=== PATIENT | female | born 1990 | race Caucasian/White ===

== ENCOUNTER 2019-02-05 07:36 | Outpatient (CLI) | payer MEDICAID ==
[~2019-02-05] VITALS: Ht 170.2 cm; Wt 76.7 kg
--- NOTE | 2019-02-05 07:45 | NUR ---
DHAVAL NOLAND presented to unit via wheelchair, accompanied by Significant Other, with c/o DECREASED MOVEMENT. DHAVAL NOLAND weighed, gowned, voided, and to bed. EFHM and TOCO applied, VS taken. DHAVAL NOLAND oriented to bed controls, call light, TV, heat, and A/C controls.
[2019-02-05 07:58] VITALS: BP 128/86
[2019-02-05 08:41] LABS: BILIRUBIN,URINE NEGATIVE (NEGATIVE); CLARITY,URINE CLEAR; COLOR,URINE YELLOW; GLUCOSE, URINE (UA) NEGATIVE (NEGATIVE); KETONES,URINE NEGATIVE (NEGATIVE); LEUKOCYTE ESTERASE ,URINE 2+ (NEGATIVE); NITRITE,URINE NEGATIVE (NEGATIVE); PH,URINE 6.5 (5-9); PROTEIN,URINE 2+ (NEGATIVE); UROBILINOGEN,URINE 8 MG/DL (NORMAL)
[2019-02-05 08:54] LABS: AMPHETAMINE SCREEN, URINE NEGATIVE (NEGATIVE); BARBITURATE SCREEN URINE NEGATIVE (NEGATIVE); BENZODIAZEPINES SCREEN URINE NEGATIVE (NEGATIVE); CANNABINOID SCREEN, URINE NEGATIVE (NEGATIVE); COCAINE SCREEN URINE NEGATIVE (NEGATIVE); METHADONE STAT NEGATIVE (NEGATIVE); METHAMPHETAMINE SCREEN URINE S POSITIVE (NEGATIVE); OPIATE SCREEN URINE NEGATIVE (NEGATIVE); OXYCODONE STAT NEGATIVE (NEGATIVE); PROPOXYPHENE STAT NEGATIVE (NEGATIVE); TRICYCLIC ANTIDEPRESSANTS SCRE NEGATIVE (NEGATIVE)
[2019-02-05 08:59] LABS: BACTERIA,URINE MODERATE /HPF
[2019-02-05] MEDS ORDERED: PREN1TAB79 PO (09:07)
[2019-02-05 09:20] VITALS: BP 120/81
--- NOTE | 2019-02-05 09:35 | NUR ---
ULTRASOUND HERE TO DO BPP. MONITORS REMOVED.
--- NOTE | 2019-02-05 10:13 | NUR ---
BPP COMPLETED. EFM REAPPLIED. PT WANTING TO REST ON LEFT SIDE. DIFFICULTY IN TRACING BOTH FETUSES IN THAT POSITION. ATTEMPTING TO MAKE MORE COMFORTABLE WITH PILLOWS AND TOWEL ROLLS.
--- NOTE | 2019-02-05 11:11 | NUR ---
DR. MORGAN NOTIFIED OF PT'S BPP RESULTS VERBALLY GIVEN BY TECH. ORDER TO DISMISS AND F/U WITH DR. CORONA SCHEDULED FOR TOMORROW IN [place].
--- NOTE | 2019-02-05 11:16 | NUR ---
EFM OFF. UP TO GET DRESSED.
[2019-02-05 11:25] VITALS: BP 120/81
--- NOTE | 2019-02-05 11:25 | NUR ---
DISCHARGE INSTRUCTIONS REVIEWED WITH COPY TO PT. STATES UNDERSTANDING OF ALL INSTRUCTIONS AND NEED TO F/U SCHEDULED AND NEEDED. DISMISSED AMB FROM [facility] IN STABLE CONDITION ACC BY S.O.
--- NOTE | 2019-02-05 11:35 | Diagnostic Imaging Report ---
EXAMINATION: biophysical profile. INDICATION: Decreased movement. COMPARISON: There are no prior studies available for comparison. FINDINGS: There are twin living fetuses. Twin A is in vertex presentation on the left. heart motion was noted and a rate of 135 BPM was recorded. The biophysical profile score for Twin A is 6 out of 8 as breathing could not be identified. There were no obvious abnormalities identified. The amniotic fluid index is 6.4 (normal SHANIKA 8-22 cm). The placenta seems to be anterior. Twin B was also in cephalic presentation on the right. heart motion was noted and a rate of 140 BPM was recorded. The biophysical profile score is also 6 out of 8 as breathing could not be visualized. The amniotic fluid index is 6.3 cm. The placenta was difficult to visualize but appears to be posterior. growth parameters were not obtained for this study. IMPRESSION: 1. There are twin living fetuses, both in cephalic presentation. 2. The biophysical profile score for each twin is 6 out of 8 as breathing could not be identified. 3. There is oligohydramnios of each gestational sac. 4. These results were conveyed to Dr. Robb by our sonologist. Dictated by: Dictated on workstation # [id number]
--- NOTE | 2019-02-06 12:36 | Physician Query-Final Dx ---
HAYDE WARD 02/06/19 1236: Clinic Account Progress/Dx Physician Query: Please give diagnosis Please include # weeks gestation Date of Service Feb 05, 2019 at 07:36 ANGELIC MORGAN DO 02/07/19 1126: Clinic Account Progress/Dx DIAGNOSIS: Diagnosis 35 week twin gestation decreased movement methamphetamine use HAYDE WARD Feb 06, 2019 12:36 ANGELIC MORGAN DO Feb 07, 2019 11:26
== END 2019-02-05 11:25 | disposition home or self-care (01) ==
LOC: WSo 07:36 → LDRP 07:41 → WSo 11:25
PROVIDERS: ATTEND Family Medicine
DX: O36.8130 Decreased fetal movements, third trimester, not applicable or unspecified (principal); O30.003 Twin pregnancy, unspecified number of placenta and unspecified number of amniotic sacs, third trimester; O99.323 Drug use complicating pregnancy, third trimester; F15.90 Other stimulant use, unspecified, uncomplicated; Z3A.35 35 weeks gestation of pregnancy
CPT/HCPCS: 76810; 76819; 80306; 81000; 99213

== ENCOUNTER 2019-02-20 13:50 | Inpatient (IN) | payer MEDICAID ==
[~2019-02-20] VITALS: Ht 170.2 cm; Wt 77.4 kg
[2019-02-20] VITALS (11 sets, daily range): BP systolic 108–131; BP diastolic 70–95
[~2019-02-20 13:50] MED LIST: PREN1TAB79 PO
--- NOTE | 2019-02-20 13:57 | NUR ---
DHAVAL NOLAND presented to unit via w/c from ED, accompanied by s/o, with c/o contractions since Monday. Pt. weighed, gowned, voided, and to bed. EFHM and TOCO applied, VS taken. Pt. oriented to bed controls, call light, TV, heat, and A/C controls.
--- NOTE | 2019-02-20 14:09 | NUR ---
EFM and TOCO applied. pt reports current with twins. reports contractions since Monday, on bedrest since.
--- NOTE | 2019-02-20 14:14 | NUR ---
Twin A monitor applied to Lt.lower abd. Twin B monitor applied to Rt.lower abd. reports seeing in [place], [place] for care prior to admission on February 05. states care was transferred to [place] and unsure of 's name. "went to see , and appointments were cancelled." Addendum: 02/20/19 at 1743 by MOISE VELASQUEZ RN Pt reports hx of emergency c/s with first child r/t elevated BP and "drop" in FHR. x3. was planning a with current . reports on bedrest. pt poor historian
--- NOTE | 2019-02-20 14:28 | NUR ---
reports leaking fluid "constant since the other day,". nitrazine negative. no active leaking noted.
--- NOTE | 2019-02-20 14:29 | NUR ---
SVE 5-6cm, soft, stretchy. 70%, posterior. unable to determine presenting part. bag of fluid noted with exam. verbal update given to Dr. Hawkins r/t KENNYE.
--- NOTE | 2019-02-20 14:37 | NUR ---
here to see pt.
[2019-02-20 14:40] LABS: BILIRUBIN,URINE NEGATIVE (NEGATIVE); CLARITY,URINE CLEAR; COLOR,URINE YELLOW; GLUCOSE, URINE (UA) NEGATIVE (NEGATIVE); KETONES,URINE NEGATIVE (NEGATIVE); LEUKOCYTE ESTERASE ,URINE 1+ (NEGATIVE); NITRITE,URINE NEGATIVE (NEGATIVE); PH,URINE 6.5 (5-9); PROTEIN,URINE 3+ (NEGATIVE)
--- NOTE | 2019-02-20 14:45 | NUR ---
bedside sono by Dr. Hawkins to check presentation.
[2019-02-20 14:47] LABS: BACTERIA,URINE FEW /HPF
[2019-02-20 14:53] LABS: AMPHETAMINE SCREEN, URINE NEGATIVE (NEGATIVE); BARBITURATE SCREEN URINE NEGATIVE (NEGATIVE); BENZODIAZEPINES SCREEN URINE NEGATIVE (NEGATIVE); CANNABINOID SCREEN, URINE NEGATIVE (NEGATIVE); COCAINE SCREEN URINE NEGATIVE (NEGATIVE); METHADONE STAT NEGATIVE (NEGATIVE); METHAMPHETAMINE SCREEN URINE S POSITIVE (NEGATIVE); OPIATE SCREEN URINE NEGATIVE (NEGATIVE); OXYCODONE STAT NEGATIVE (NEGATIVE); PROPOXYPHENE STAT NEGATIVE (NEGATIVE); TRICYCLIC ANTIDEPRESSANTS SCRE NEGATIVE (NEGATIVE)
--- NOTE | 2019-02-20 15:02 | NUR ---
c/s consent signed and placed on chart
[2019-02-20] MEDS ORDERED: D5 LR IV SOLUTION 1,000 ML IV SCH ×2 (15:03→16:06)
--- NOTE | 2019-02-20 15:08 | NUR ---
Cierra Tam here.
--- NOTE | 2019-02-20 15:11 | History & Physical ---
History and Physical Date Seen by Provider: Feb 20, 2019 Time Seen by Provider: 15:08 This patient is a 28-year-old A1 white female with a history of a single and VBACs 3. She had her care in [place] with a Dr. Lopes but has transferred her care to this hospital as she prefers deliver here. She presents with complaint of contractions and pressure. Her cervix is 5 cm dilated. She is having irregular contractions but is obviously in pain with contractions. She denies leading but does feel like she's leaking fluid and nitrazine was negative. Patient indicates that Dr. Lopes was planning a repeat tomorrow for her. She is requesting but after lengthy discussion regarding risks benefits and current standard of care recommendations she agrees to proceed with delivery in this case. Allergies are none Medications are none Social history patient smokes she denies drug and alcohol use. Please note a UDS was positive for methamphetamine History is noncontributory H ENT exam is normal except for exceedingly poor dentition Neck is supple no lymphadenopathy no thyromegaly Abdomen is gravid soft nontender nondistended Extremities show no clubbing or cyanosis. There is no Homans sign. Pelvic exam per the nurse shows a cervix 5+ and Ms. dilated very stretchy with a bulging bag and a barely palpable presenting vertex. Bedside ultrasound does confirm vertex 2 on the twins monitor shows occasional contractions with frequent uterine irritability. heart rate pattern is normal. Assessment and plan term at 37-6/7 weeks' gestation with twins and a previous . Patient is being admitted now for repeat delivery. Surgical risk complications recovery and follow-up have been fully discussed. Patient agrees with the plan and accepts those risks and is ready to proceed 30 7676 weeks gestation and labor with previous and twins Allergies and Home Medications Allergies Coded Allergies: No Known Drug Allergies (Unverified , 02/05/19) Home Medications Vit W-Ca,Fe,FA(<1 mg) 1 Each Tablet, 1 EACH PO DAILY, (Reported) Patient Home Medication List Home Medication List Reviewed: Yes LIZZ SOTOMAYOR MD Feb 20, 2019 15:11
[2019-02-20] MEDS ORDERED: CITRIC ACID/SOB CIT (BICITRA) 30 ML UDC PO ONE (15:15)
[2019-02-20] MEDS ORDERED: metroNIDAZOLE 500MG/100ML IVPB 100 ML IV ONE ×2 (15:15)
[2019-02-20] MEDS ORDERED: FAMOTIDINE 20MG/2ML IV (PEPCID) IV ONE (15:15)
[2019-02-20] MEDS ORDERED: ceFAZolin INJECTION 2,000 MG in WATER (STERILE) FOR INJECTION 10 ML IV ONE (15:15)
[2019-02-20] MEDS ORDERED: ceFAZolin 2 GM IV Premixed 50 ML IV ONE (15:15)
[2019-02-20] MEDS ORDERED: METOCLOPRAMIDE INJ 10 MG/2 ML (REGLAN) IV ONE (15:15)
[2019-02-20] MEDS ORDERED: fentaNYL INJECTION 100 MCG/2 ML AMP ONE (15:18)
[2019-02-20 15:19] LABS: BASOPHILS % (AUTO) 1 % (0-10); EOSINOPHILS # (AUTO) 0.1 10^3/uL (0.0-0.3); EOSINOPHILS % (AUTO) 1 % (0-10); HEMATOCRIT 27 % (35-52); HEMOGLOBIN 8.3 G/DL (11.5-16.0); LYMPHOCYTES # (AUTO) 1.5 X 10^3 (1.0-4.0); LYMPHOCYTES % (AUTO) 24 % (12-44); MEAN CORPUSCULAR HEMOGLOBIN 22 PG (25-34); MEAN CORPUSCULAR HGB CONC 30 G/DL (32-36); MEAN CORPUSCULAR VOLUME 73 FL (80-99); MEAN PLATELET VOLUME 10.9 FL (7.4-10.4); MONOCYTES # (AUTO) 0.4 X 10^3 (0.0-1.0); MONOCYTES % (AUTO) 6 % (0-12); NEUTROPHILS # (AUTO) 4.4 X 10^3 (1.8-7.8); NEUTROPHILS % (AUTO) 68 % (42-75); PLATELET COUNT 141 10^3/uL (130-400); RED CELL DISTRIBUTION WIDTH 15.1 % (10.0-14.5); WHITE BLOOD COUNT 6.4 10^3/uL (4.3-11.0)
[2019-02-20] MEDS: LACTATED RINGERS 1,000 ML IV PRN ×2 (15:20→15:53)
[2019-02-20] MEDS ORDERED: OXYTOCIN/NORMAL SALINE 1,000 ML IV ONE (15:20)
[2019-02-20] MEDS ORDERED: BUPIVACAINE 0.5% 30 ML (SENSORCAINE) VIAL ONE (15:28)
--- NOTE | 2019-02-20 15:34 | NUR ---
monitors dc'd. pt transferred to OB c/s room via bed with OR staff @ side.
[2019-02-20] MEDS ORDERED: KETOROLAC 30 MG/ML VIAL ONE (15:42)
[2019-02-20] MEDS ORDERED: OXYTOCIN/NORMAL SALINE 500 ML IV SCH (16:06)
[2019-02-20] MEDS ORDERED: MEASLES,MUMPS,RUBELLA 1 EA INJ SC ONE (16:15)
[2019-02-20] MEDS ORDERED: ONDANSETRON 4 MG/2 ML (SDV) Z0FRAN IVP PRN ×2 (16:15→16:45)
[2019-02-20] MEDS ORDERED: TETANUS,DIPTH,PERTUSS P/F (BOOSTRIX) 0.5 ML VIAL IM ONE (16:15)
--- NOTE | 2019-02-20 16:16 | NUR ---
Completed an online report with [place] Department Saw[employer] Manager for child welfare. Report completed due to the patient residing out of state and positive uds on 02/20 and 02/05. Will continue to follow.
[2019-02-20] MEDS ORDERED: HYDROmorphone 2 MG/ML VIAL (DILAUDID) IV ONE (16:45)
--- NOTE | 2019-02-20 17:03 | NUR ---
Report given to CORA Neal.
[2019-02-20] MEDS: KETOROLAC 30 MG/ML VIAL IVP PRN ×2 (17:06→23:25)
--- NOTE | 2019-02-20 17:35 | NUR ---
PT TRANSFERRED FROM [facility] TO [facility] VIA BED IN STABLE CONDITION ACC BY DAGOBERTO LAPEL PADDER BLINDSTITCH AND THIS RN. REPORT RECEIVED.
--- NOTE | 2019-02-20 18:32 | NUR ---
PT RESTING. VS OBTAINED. VPAD AND CHUX PAD NOTED TO BE SATURATED. FUNDAL MASSAGE PERFORMED. FFU/-2, LT VAG FLOW NOTED. + PERICARE AND PAD CHANGE. EBL NOTED TO BE 840 ML.
--- NOTE | 2019-02-20 18:35 | NUR ---
DR. SOTOMAYOR NOTIFIED OF LATEST EVENT, VS, FFU/-2, CURRENTLY LT FLOW. NEW ORDER RECEIVED FOR [facility] TOMORROW AM. WILL CONTINUE MONITORING.
--- NOTE | 2019-02-20 19:13 | NUR ---
PT JUST FINISHED EATING DINNER. VS OBTAINED. NEW BAG OF PITOCIN HUNG AND INFUSING @ 125 ML/HR/PUMP. FFU/-2, MODERATE RUBRA LOCHIA. + PERICARE, NEW VPAD IN PLACE FOR NEXT SHIFT. PT ASKING FOR INFANTS TO COME TO ROOM.
[2019-02-20] MEDS ORDERED: DOCUSATE SODIUM 100 MG (COLACE) CAP PO SCH (21:00)
--- NOTE | 2019-02-20 21:50 | NUR ---
Pt. assessed at this time. Fundus massaged. Firm and 1 under umbilicus. Moderate bleeding noted on V-Pad. All other physical findings are WNL's.
[2019-02-20] MEDS: DOCUSATE SODIUM 100 MG (COLACE) CAP PO SCH (21:51)
[2019-02-20] MEDS: oxyCODONE/APAP 10/325MG (PERCOCET 10) TABLET PO PRN (21:51)
--- NOTE | 2019-02-20 23:00 | NUR ---
Pt. up to bathroom with nurse assist. Voided 250 of brittany urine. Tolerated well. Pericare given. Clean pad and underwear put on. Fundus firm and 1 under umbilicus. Flow continues to be moderate. Pt. back to bed and SCD's put back on.
--- NOTE | 2019-02-21 02:36 | OPERATIVE REPORT ---
DATE OF SERVICE: 02/20/2019 PREOPERATIVE DIAGNOSIS: Term at 37 and 5/7th weeks' gestation with a previous section and with twins in active labor at 5+ cm dilated. POSTOPERATIVE DIAGNOSIS: Term at 37 and 5/7th weeks' gestation with a previous section and with twins in active labor at 5+ cm dilated. OPERATIVE PROCEDURE: Repeat low transverse delivery of viable twin boys. Twin A had Apgars of 7 and 8, weight of 6 pounds and 6 ounces. Cord blood pH of 7.31 and a time of 1558. Baby B had Apgars of 8 and 9, weight of 7 pounds 9 ounces. Cord blood pH of 7.31 and a time of 1559. Again, both were males. OPERATIVE DESCRIPTION: With the patient in the supine position under satisfactory spinal anesthesia, she was prepped and draped in the usual fashion for abdominal surgery. Mata catheter was placed in the urinary bladder. A repeat Pfannenstiel incision was made through the skin with a scalpel at the site of the patient's previous Pfannenstiel incision. The abdomen was entered in the usual manner. Bladder retractor placed into position and a clean scalpel used to make a 4 cm hysterotomy incision transversely across the lower uterine segment that was extended by blunt dissection. The membranes for baby A were ruptured in the process. Copious meconium, moderate meconium stained fluid was released. A vigorous viable male was delivered via the uterine incision. had Apgars and stats as noted above. The infant was bulb suctioned on delivery, the umbilical cord was doubly clamped and cut and the infant taken to the warmer by one of the pediatric nurses in attendance. The second baby had converted from vertex now to breech footling presentation. Both feet were grasped. The membranes were ruptured and then breech extraction was performed in the usual manner, bringing the baby down to the shoulders. The arms were swept out and then the delivery completed with the Xotxcacrq-Zhyfzrx-Ejvj maneuver to keep the neck flexed. The infant again was also bulb suctioned. The umbilical cord was doubly clamped and cut and the taken to the warmer by the second pediatric nurse in attendance for delivery. Cord bloods were now obtained. The cords had been marked appropriately with clamps for A and B. After obtaining the cord bloods, a plastic umbilical cord clamp was placed on the cord for baby A's placenta and that entire mass was sent to pathology for permanent section. The placentas were delivered spontaneously Jaramillo. They were normal both with apparent 3-vessel cords. The uterus was now exteriorized, interior wiped clean with a wet laparotomy sponge and the uterine incision was closed with a running locked suture of 2-0 Vicryl. Hemostasis was complete. The uterus was returned to the abdominal cavity. All blood clot and debris removed from the abdominal cavity. With sponge and needle counts correct and hemostasis assured, the anterior parietal peritoneum was closed with running suture of 2-0 Vicryl, the rectus muscles were closed with that suture as well. The rectus fascia was closed with 2-0 Vicryl suture and the skin was stapled after closing the subcutaneous tissue with 2-0 Vicryl suture. Sponge and needle counts were correct on completion of the procedure. Estimated blood loss was around 500 mL. The patient tolerated the procedure well and was transferred to the recovery room in stable condition. Both babies had been taken stable to the full term nursery under the care of the pediatric nurses and Dr. Simpson and Dr. Arce, the paraffin plant sweater operator in attendance for delivery as well. Job ID: [id number] DocumentID: [id number] Dictated Date: 02/20/2019 16:25:49 Recooperer Date: 02/21/2019 02:35:39 Dictated By: LIZZ SOTOMAYOR MD
--- NOTE | 2019-02-21 03:55 | NUR ---
Pt. up to bathroom with nurse assist. Tolerated well. Voided 300ml of clear urine at this time. Fundus massaged. Fundus firm and 1 under umbilicus. Scant bleeding noted on V pad when changed in the bathroom.
[2019-02-21 04:00] VITALS: BP 128/85
--- NOTE | 2019-02-21 05:39 | NUR ---
Pt. dressing removed at this time. Pt tolerated well. Incision is well approximated with no drainage, redness, or swelling noted at this time.
[2019-02-21] MEDS: KETOROLAC 30 MG/ML VIAL IVP PRN (05:52)
[2019-02-21 06:33] LABS: BASOPHILS % (AUTO) 0 % (0-10); EOSINOPHILS # (AUTO) 0.1 10^3/uL (0.0-0.3); EOSINOPHILS % (AUTO) 1 % (0-10); LYMPHOCYTES # (AUTO) 1.9 X 10^3 (1.0-4.0); LYMPHOCYTES % (AUTO) 22 % (12-44); MEAN CORPUSCULAR HEMOGLOBIN 22 PG (25-34); MEAN CORPUSCULAR HGB CONC 30 G/DL (32-36); MEAN CORPUSCULAR VOLUME 73 FL (80-99); MEAN PLATELET VOLUME 10.5 FL (7.4-10.4); MONOCYTES # (AUTO) 0.5 X 10^3 (0.0-1.0); MONOCYTES % (AUTO) 6 % (0-12); NEUTROPHILS # (AUTO) 5.9 X 10^3 (1.8-7.8); NEUTROPHILS % (AUTO) 71 % (42-75); PLATELET COUNT 179 10^3/uL (130-400); RED CELL DISTRIBUTION WIDTH 15.2 % (10.0-14.5); WHITE BLOOD COUNT 8.4 10^3/uL (4.3-11.0)
[2019-02-21 06:49] LABS: HEMATOCRIT 20 % (35-52)
[2019-02-21] MEDS: oxyCODONE/APAP 10/325MG (PERCOCET 10) TABLET PO PRN ×2 (06:55→18:06)
--- NOTE | 2019-02-21 06:58 | NUR ---
Dr. Hawkins called with results of morning Hgb and Hct. Vitals given to at this time. states that he will be up shortly to talk to pt about possible transfusion.
--- NOTE | 2019-02-21 07:40 | Anesthesia-Regional Post-Op ---
Regional Patient Condition Mental Status: Alert, Oriented x3 Circulation: Same as Pre-Op Headache: Absent Sensation: Full Recovery Motor Block: Absent Post Op Complications Complications None Follow Up Care/Instructions Patient Instructions None needed. Anesthesia/Patient Condition Patient is doing well, no complaints, stable vital signs, no apparent adverse anesthesia problems. No complications reported per nursing. AMAURI MOODY CRNA Feb 21, 2019 07:40
[2019-02-21 07:50] VITALS: BP 130/60
--- NOTE | 2019-02-21 08:03 | Progress Note ---
Standard Progress Note Progress Notes/Assess & Plan Date Seen by a Provider: Feb 21, 2019 Time Seen by a Provider: 08:01 Progress/Assessment & Plan This patient is without complaint. She denies headache, denies nausea vomiting, denies chest pain, denies shortness breath. Patient is ablating, voiding, tolerating oral intake well has good pain control. She denies lightheadedness. Vital Signs Date Time Temp Pulse Resp B/P (MAP) Pulse Ox O2 Delivery O2 Flow Rate FiO2 02/21/19 04:00 37.6 83 20 128/85 (99) 97 Room Air 02/20/19 23:30 37.2 83 18 128/90 (103) 98 Room Air 02/20/19 19:06 36.8 82 18 126/86 (99) 100 Room Air 02/20/19 18:17 36.9 77 18 120/84 (96) 100 Room Air 02/20/19 17:35 Room Air 02/20/19 17:25 Room Air 02/20/19 17:20 36.6 16 129/92 (104) 100 Room Air 02/20/19 17:10 16 131/95 (107) 100 Room Air 02/20/19 17:10 Room Air 02/20/19 17:00 16 123/92 (102) 100 Room Air 02/20/19 16:55 Room Air 02/20/19 16:50 16 117/85 (96) 98 Room Air 02/20/19 16:40 Room Air 02/20/19 16:40 16 117/81 (93) 99 Room Air 02/20/19 16:30 16 108/78 (88) 100 Room Air 02/20/19 16:26 36.7 16 113/70 (84) 99 Room Air 02/20/19 16:26 Room Air 02/20/19 14:09 36.7 86 18 123/85 (98) 99 Room Air I & O 02/21/19 07:00 Intake Total 3010 ml Output Total 1150 ml Balance 1860 ml Vital signs are stable. Patient is afebrile. Laboratory Tests 02/20/19 15:05 02/21/19 06:15 Hemoglobin is noted. The abdomen is benign. The surgical incision is clean dry and intact. Extremities show no clubbing cyanosis. There is no Homans sign. Assessment and plan postoperative day number 1 status post repeat delivery doing well. Patient is anemic with a hemoglobin of 6, however she is almost completely asymptomatic. We will initiate oral iron therapy and observe. The anemia has been discussed with the patient she does understand that is there is the option for blood transfusion if she should become symptomatic for her anemia otherwise routine convalescence care LIZZ SOTOMAYOR MD Feb 21, 2019 08:03
[2019-02-21] MEDS: DOCUSATE SODIUM 100 MG (COLACE) CAP PO SCH ×2 (08:05→20:20)
[2019-02-21] MEDS: FERROUS SULF 325 MG (IRON) TAB PO SCH (08:15)
[2019-02-21] MEDS ORDERED: TETANUS,DIPTH,PERTUSS P/F (BOOSTRIX) 0.5 ML VIAL IM ONE (08:30)
--- NOTE | 2019-02-21 09:05 | NUR ---
CM/SS spoke with the MOBs and Hugo, they stated that they were thinking of moving to [facility] and were kind of staying between [place] and [place] right now, stated they had homes in both locations but were planning to let the [place] home go. They did not have any services such as WIC set up in [place], provided information on the services available in the area. Hugo stated that between the two of them they now have 12 kids, when asked where the other children were he stated with his mother. Elisha denied any drug use, did say she had history of drug use. Report made to [place] Department Sales Trader, they will be asking [place] to do a courtesy visit on the family. Will continue to follow.
[2019-02-21] MEDS ORDERED: FERR325T18 PO (09:48)
[2019-02-21] MEDS ORDERED: DOCU100C37 PO (09:48)
[2019-02-21] MEDS ORDERED: IBUP-1780 PO (09:48)
[2019-02-21] MEDS ORDERED: OXYC1TAB12 PO (09:48)
--- NOTE | 2019-02-21 09:49 | Discharge Instructions ---
Discharge Instructions Discharge Medications New, Converted or Re-Newed RX: RX on Chart Patient Instructions Return to The Hospital For: as directed Activity & Diet Discharge Diet: No Restrictions Activity as Tolerated: No Orders-Post D/C & Referrals Follow Up Appt: RTC 1 week for incision check. Call to make follow up appt. for patient in 4 weeks. Wound Care: Remove katherine, apply benzoin and steri strips. Activity Per routine post instructions. Please call in RX to patient pharmacy. Diet as tolerated Patient may shower or tub bathe as desired. Continue home meds LIZZ SOTOMAYOR MD Feb 21, 2019 09:49
--- NOTE | 2019-02-21 10:15 | NUR ---
Kath Beth from [facility] called to inquire about pt after referral for postive drug screen. Gave her mother's status report and possible discharge tomorrow. She spoke with Lselye Barreto Rn about infants care. Kath plans to call pt in room and discuss case.
--- NOTE | 2019-02-21 12:00 | NUR ---
Up to BR 700ml void, large clot 8cms passed. Scant amount of flow on pad. Denies dizziness with ambulation.
[2019-02-21 12:10] VITALS: BP 132/61
[2019-02-21] MEDS ORDERED: IBUPROFEN 600 MG (MOTRIN) TAB PO ONE (12:18)
[2019-02-21] MEDS ORDERED: IBUPROFEN 800 MG (MOTRIN) TAB PO ONE (12:19)
[2019-02-21] MEDS: IBUPROFEN 800 MG (MOTRIN) TAB PO SCH ×2 (12:25→18:06)
--- NOTE | 2019-02-21 14:25 | NUR ---
Kath Caceres with [facility] called to inquire about positive drug screen since mom denied usage to Kath per phone call. Drug screens on 02/05, 02/20 faxed to [phone] (office). She stated that Tj Carlos from [facility] would discuss case with parents either in this evening or morning.
--- NOTE | 2019-02-21 14:54 | NUR ---
CM/SS received call from Kath Caceres with [facility]. She stated that [place] will be taking the twins into custody at discharge. She is faxing the paperwork to the hospital. She will need notified at discharge either at office # [phone] or on her cell # [phone]. She stated that a DCF worker will be coming from the [place] office to speak to the parents about the case.
[2019-02-21 16:25] VITALS: BP 116/61
--- NOTE | 2019-02-21 16:30 | NUR ---
Tj Carlos from [facility] DCF here to discuss plans with pt due to positive drug screens. Probable twins to [place] state custody tomorrow.
[2019-02-21 20:20] VITALS: BP 122/70
[2019-02-22] MEDS: IBUPROFEN 800 MG (MOTRIN) TAB PO SCH ×3 (00:34→11:59)
[2019-02-22 00:40] VITALS: BP 140/80
[2019-02-22] MEDS: oxyCODONE/APAP 10/325MG (PERCOCET 10) TABLET PO PRN (05:49)
[2019-02-22 06:35] VITALS: BP 116/71
--- NOTE | 2019-02-22 07:44 | Progress Note ---
Standard Progress Note Progress Notes/Assess & Plan Date Seen by a Provider: Feb 22, 2019 Time Seen by a Provider: 07:43 Progress/Assessment & Plan This patient is without complaint. She denies headache, denies nausea vomiting, denies chest pain, denies shortness breath. Patient is ablating, voiding, tolerating oral intake well has good pain control. She denies lightheadedness. Vital Signs Date Time Temp Pulse Resp B/P (MAP) Pulse Ox O2 Delivery O2 Flow Rate FiO2 02/21/19 04:00 37.6 83 20 128/85 (99) 97 Room Air 02/20/19 23:30 37.2 83 18 128/90 (103) 98 Room Air 02/20/19 19:06 36.8 82 18 126/86 (99) 100 Room Air 02/20/19 18:17 36.9 77 18 120/84 (96) 100 Room Air 02/20/19 17:35 Room Air 02/20/19 17:25 Room Air 02/20/19 17:20 36.6 16 129/92 (104) 100 Room Air 02/20/19 17:10 16 131/95 (107) 100 Room Air 02/20/19 17:10 Room Air 02/20/19 17:00 16 123/92 (102) 100 Room Air 02/20/19 16:55 Room Air 02/20/19 16:50 16 117/85 (96) 98 Room Air 02/20/19 16:40 Room Air 02/20/19 16:40 16 117/81 (93) 99 Room Air 02/20/19 16:30 16 108/78 (88) 100 Room Air 02/20/19 16:26 36.7 16 113/70 (84) 99 Room Air 02/20/19 16:26 Room Air 02/20/19 14:09 36.7 86 18 123/85 (98) 99 Room Air I & O 02/21/19 07:00 Intake Total 3010 ml Output Total 1150 ml Balance 1860 ml Vital signs are stable. Patient is afebrile. Laboratory Tests 02/20/19 15:05 02/21/19 06:15 Hemoglobin is noted. The abdomen is benign. The surgical incision is clean dry and intact. Extremities show no clubbing cyanosis. There is no Homans sign. Assessment and plan postoperative day number 1 status post repeat delivery doing well. Patient is anemic with a hemoglobin of 6, however she is almost completely asymptomatic. We will initiate oral iron therapy and observe. The anemia has been discussed with the patient she does understand that is there is the option for blood transfusion if she should become symptomatic for her anemia otherwise routine convalescence care February 22, 2015 Patient without complaint. She is ablating, voiding, tolerating oral intake well has good pain control. Patient is requesting discharge home. Patient denies chest pain, denies shortness of breath, denies nausea vomiting, denies headache, denies dizziness and lightheadedness. Vital Signs Date Time Temp Pulse Resp B/P (MAP) Pulse Ox O2 Delivery O2 Flow Rate FiO2 02/22/19 06:35 37.3 70 16 116/71 (86) 95 Room Air 02/22/19 00:40 37.3 75 16 140/80 (100) 100 Room Air 02/21/19 20:20 36.9 89 16 122/70 (87) 98 Room Air 02/21/19 16:25 36.3 70 16 116/61 (79) 97 Room Air 02/21/19 12:10 37.3 74 16 132/61 (84) 98 Room Air 02/21/19 07:50 36.9 87 16 130/60 (83) 97 Room Air I & O 02/22/19 07:00 Output Total 1300 ml Balance -1300 ml Vital signs are stable. Patient is afebrile. Patient's pulse is 100. The abdomen is benign. The surgical incision is clean dry and intact. Fundus is firm below the umbilicus and nontender. Extremities show no clubbing cyanosis. There is no Homans sign. Assessment and plan postoperative day number 2 status post repeat delivery for twins doing well. Patient is anemic but is asymptomatic we have discussed blood transfusion versus iron supplementation and at this point we will continue with oral iron supplementation and follow-up in clinic. Patient is to be discharged home today Final Diagnosis 37-5/7 week repeat for twins in labor LIZZ SOTOMAYOR MD Feb 22, 2019 07:44
[2019-02-22 08:00] VITALS: BP 121/71
--- NOTE | 2019-02-22 08:00 | NUR ---
A.M. ASSESSMENT COMPLETED. VSS.
[2019-02-22] MEDS: FERROUS SULF 325 MG (IRON) TAB PO SCH (10:17)
[2019-02-22] MEDS: DOCUSATE SODIUM 100 MG (COLACE) CAP PO SCH (10:17)
--- NOTE | 2019-02-22 11:00 | NUR ---
CARING FOR INFANTS IN ROOM. GOOD INTERACTION NOTED.
--- NOTE | 2019-02-22 12:31 | NUR ---
CM/SS message left for Tj with [facility] [employer] as this is whom [place] said would be meeting with family to inform them [place] taking custody of babies. Left call back information.
--- NOTE | 2019-02-22 12:55 | NUR ---
DISCHARGE INSTRUCTIONS REVIEWED WITH COPY TO PT. RXS CALLED TO [facility] ON [address] IN [place] PER PT REQUEST. STATES UNDERSTANDING OF ALL INSTRUCTIONS AND NEED TO F/U SCHEDULED AND NEEDED.
--- NOTE | 2019-02-22 13:00 | NUR ---
ISA D/C'ED AND STERISTRIPS APPLIED. EDGES WELL-APPROXIMATED. NO REDNESS OR DRAINAGE. TOLERATED WELL.
[2019-02-22 14:25] VITALS: BP 121/71
--- NOTE | 2019-02-22 14:25 | NUR ---
DISMISSED AMB FROM [facility] IN STABLE CONDITION TO [facility] ACC BY REUBEN SHEPHERD.
--- NOTE | 2019-02-26 09:01 | NUR ---
CM/SS faxed toxicology reports to [facility] Department Assurance Auditor at her request.
== END 2019-02-22 14:25 | disposition home or self-care (01) | DRG 787 ==
LOC: WSo 13:50 → LDRP 13:52 → WSo 14:56 → LDRP 14:57
PROVIDERS: ADMIT Obstetrics & Gynecology; ATTEND Obstetrics & Gynecology
PROC: 10D00Z1 Extraction of Products of Conception, Low, Open Approach (ICD-10-PCS; principal; 2019-02-20 15:37)
DX: O30.033 Twin pregnancy, monochorionic/diamniotic, third trimester (principal); O34.211 Maternal care for low transverse scar from previous cesarean delivery; O77.0 Labor and delivery complicated by meconium in amniotic fluid; O32.1XX0 Maternal care for breech presentation, not applicable or unspecified; O99.324 Drug use complicating childbirth; F15.10 Other stimulant abuse, uncomplicated; O90.81 Anemia of the puerperium; D64.9 Anemia, unspecified; Z37.2 Twins, both liveborn
CPT/HCPCS: 36415; 80306; 81000; 85025; 86850; 86900; 86901; 87088; 94664; 99212